=== PATIENT | male | born 1940 | race African-American/Black ===

== ENCOUNTER 2018-05-17 17:58 | Inpatient (IN) | payer MEDICARE, MEDICAID, OTHER ==
[~2018-05-17] VITALS: Ht 182.9 cm; Wt 108.4 kg
[~2018-05-17 17:58] MED LIST: ACET650S25 PO; AP25 PO; ASPI-1158 PO; BENA20TA10 PO; BENA40TA9 PO; CLON0.1T PO; CLOP75TA16 PO; DIAZ2TAB3 PO; DICL100G16 TP; DICL25TA8 PO; FURO20TA4 PO; GLIP5TAB12 PO; IBUP-2030 PO; METO1TAB24 PO; OXYB5TAB11 PO; PREG75CA PO; SIMV40TA5 PO; SIMV5TAB53 PO; ZOLP5TAB2 PO
[2018-05-17 18:57] LABS: BASOPHILS % 0.1 % (0.0-2.0); EOSINOPHILS % 1.1 % (0.0-5.0); HEMATOCRIT. 46.7 % (42.0-52.0); HEMOGLOBIN. 14.7 g/dL (14.0-18.0); LYMPHOCYTES % 20.3 % (20.0-50.0); MEAN CORPUSCULAR HEMOGLOBIN 25.8 pg (28.0-32.0); MEAN CORPUSCULAR VOLUME 82.3 fL (80.0-94.0); MEAN PLATELET VOLUME 7.9 fl (7.4-10.4); NEUTROPHILS % 67.5 % (40.0-76.0); PLATELET 159 x1000/uL (130-400); RED BLOOD CELL COUNT 5.68 mill/uL (4.7-6.1); RED CELL DISTRIBUTION WIDTH 16.3 % (11.6-14.6)
[2018-05-17 18:58] LABS: CHLORIDE 106 mEq/L (98-107)
[2018-05-17 19:03] LABS: ETHANOL BLOOD < 10 mg/dL
[2018-05-17 20:07] LABS: CLARITY URINE CLEAR (CLEAR); COLOR URINE YELLOW (YELLOW); KETONES URINE 1+ (NEGATIVE); LEUKOCYTE ESTERASE URINE NEGATIVE (NEGATIVE); NITRITE URINE NEGATIVE (NEGATIVE); OCCULT BLOOD URINE NEGATIVE (NEGATIVE); PH URINE 6.5 (4.5-8.0); PROTEIN URINE NEGATIVE (NEGATIVE); SPECIFIC GRAVITY URINE 1.021 (1.005-1.030); UROBILINOGEN URINE 0.2 E.U./dL (0.2-1.0)
[2018-05-17 20:19] LABS: *AMPHETAMINES SCREEN URINE NEGATIVE (NEGATIVE)
[2018-05-17 20:20] LABS: *BARBITURATES SCREEN URINE NEGATIVE (NEGATIVE); *BENZODIAZEPINES SCREEN URINE NEGATIVE (NEGATIVE); *COCAINE SCREEN URINE NEGATIVE (NEGATIVE); CANNABINOID URINE SCREEN NEGATIVE (NEGATIVE); METHADONE URINE SCREEN NEGATIVE (NEGATIVE); OPIATES URINE SCREEN PRESUMTIVE POSITIVE (NEGATIVE); PHENCYCLIDINE URINE SCREEN NEGATIVE (NEGATIVE)
[2018-05-17] MEDS ORDERED: HYDRALAZINE 20MG/ML VIAL IV ONE (20:30)
[2018-05-17] MEDS ORDERED: NALOXONE HCL 0.4 MG/ML 1ML VIAL IV ONE (20:30)
[2018-05-17 20:46] LABS: BG BASE EXCESS 0.2 mmol/L (-2.0-2.0); BG CARBOXYHEMOGLOBIN 1.1 % (0.5-1.5); BG DEOXYHEMOGLOBIN 1.7 % (0.0-5.0); BG FRACTION INSPIRED OXYGEN 28; BG HCO3 ACT 24.6 mmol/L (22.0-26.0); BG METHEMOGLOBIN 0.2 % (0.0-1.5); BG OXYGEN SATURATION 98.3 % (92.0-98.5); BG PCO2 39.1 mmHg (35.0-45.0); BG PH 7.417 (7.350-7.450); BG PO2 112.6 mmHg (75.0-100.0); BG SAMPLE SITE RIGHT RADIAL; BG TOTAL HEMOGLOBIN 14.7 g/dL (12.0-18.0); BG VENT MODE NASAL CANNULA
[2018-05-17 23:30] VITALS: BP 164/92
[2018-05-18] MEDS ORDERED: QUET25TA PO (00:56)
[2018-05-18] MEDS ORDERED: DEXT 5%/0.45% NACL 500ML 1,000 ML IV SCH (02:00)
[2018-05-18 04:00] VITALS: BP 129/80
[2018-05-18 08:04] VITALS: BP 150/91
[2018-05-18 08:33] LABS: BG BASE EXCESS -0.1 mmol/L (-2.0-2.0); BG CARBOXYHEMOGLOBIN 0.9 % (0.5-1.5); BG DEOXYHEMOGLOBIN 1.8 % (0.0-5.0); BG FRACTION INSPIRED OXYGEN 32; BG HCO3 ACT 26.7 mmol/L (22.0-26.0); BG OXYGEN SATURATION 98.2 % (92.0-98.5); BG OXYHEMOGLOBIN 97.3 % (94.0-97.0); BG PCO2 52.1 mmHg (35.0-45.0); BG PH 7.327 (7.350-7.450); BG PO2 111.4 mmHg (75.0-100.0); BG SAMPLE SITE RIGHT RADIAL; BG TOTAL HEMOGLOBIN 14.1 g/dL (12.0-18.0); BG VENT MODE NASAL CANNULA
[2018-05-18] MEDS: ENOXAPARIN 30MG/0.3ML SYR SUBCUT SCH ×2 (08:48→20:52)
[2018-05-18] MEDS: PANTOPRAZOLE SODIUM 40 MG/VIAL IV SCH (08:48)
[2018-05-18] MEDS ORDERED: ENOXAPARIN 40MG/0.4ML SYR SUBCUT SCH (09:00)
[2018-05-18 11:41] VITALS: BP 141/77
[2018-05-18 12:45] LABS: HEMOGLOBIN 13.2 g/dL (14.0-18.0); MEAN CORPUSCULAR HEMOGLOBIN 25.7 pg (28.0-32.0); MEAN CORPUSCULAR VOLUME 82.1 fL (80.0-94.0); PLATELET 153 x1000/uL (130-400); RED BLOOD CELL COUNT 5.11 mill/uL (4.7-6.1); RED CELL DISTRIBUTION WIDTH 15.9 % (11.6-14.6)
[2018-05-18 12:52] LABS: CHLORIDE 110 mEq/L (98-107)
[2018-05-18] MEDS ORDERED: DEXTROSE 50% WATER 50ML SYRINGE IV PRN (15:00)
[2018-05-18] MEDS ORDERED: ACETAMINOPHEN 650MG SUPP PR PRN (15:00)
[2018-05-18] MEDS ORDERED: DIPHENHYDRAMINE 50MG/ML VIAL IV PRN (15:00)
[2018-05-18] MEDS ORDERED: ACETAMINOPHEN 325MG TABLET PO PRN (15:00)
[2018-05-18 15:55] LABS: BG CARBOXYHEMOGLOBIN 0.8 % (0.5-1.5); BG DEOXYHEMOGLOBIN 6.4 % (0.0-5.0); BG FRACTION INSPIRED OXYGEN 21; BG HCO3 ACT 25.3 mmol/L (22.0-26.0); BG METHEMOGLOBIN 0.4 % (0.0-1.5); BG OXYGEN SATURATION 93.5 % (92.0-98.5); BG OXYHEMOGLOBIN 92.4 % (94.0-97.0); BG PCO2 39.2 mmHg (35.0-45.0); BG PH 7.427 (7.350-7.450); BG PO2 65.5 mmHg (75.0-100.0); BG SAMPLE SITE RIGHT RADIAL; BG TOTAL HEMOGLOBIN 14.2 g/dL (12.0-18.0); BG VENT MODE ROOM AIR
[2018-05-18 16:00] VITALS: BP 171/89
[2018-05-18 16:24] LABS: CREATINE KINASE MB FRACTION 2.2 ng/mL (0.5-3.6)
[2018-05-18] MEDS: LEVOFLOXACIN 500MG PREMIX 100 ML IV SCH (16:28)
[2018-05-18] MEDS: HYDRALAZINE 20MG/ML VIAL IV PRN (16:29)
[2018-05-18] MEDS ORDERED: P20 MT (17:13)
[2018-05-18] MEDS ORDERED: LOSA100T14 PO (17:13)
[2018-05-18] MEDS ORDERED: DOCU100T PO (17:13)
[2018-05-18] MEDS ORDERED: LEVA1.2515 IH (17:13)
[2018-05-18] MEDS ORDERED: SILV50CR31 TP (17:13)
[2018-05-18] MEDS ORDERED: MULT-1203 PO (17:13)
[2018-05-18] MEDS ORDERED: CHOL200010 MT (17:13)
[2018-05-18] MEDS ORDERED: SPIR25TA6 PO (17:13)
[2018-05-18] MEDS ORDERED: SILV480G2 TP (17:13)
[2018-05-18] MEDS ORDERED: METO-411 PO (17:13)
[2018-05-18] MEDS ORDERED: SILD20TA PO (17:13)
[2018-05-18] MEDS ORDERED: TC025C15 TP (17:13)
[2018-05-18] MEDS ORDERED: ALBU90AE INH (17:13)
[2018-05-18] MEDS ORDERED: FLUT15.88 BOTHNSTRLS (17:13)
[2018-05-18] MEDS ORDERED: BENA20TA10 PO (17:13)
[2018-05-18] MEDS ORDERED: FLUT1DIS3 INH (17:13)
[2018-05-18] MEDS ORDERED: NALO4SPR BOTHNSTRLS (17:13)
[2018-05-18] MEDS ORDERED: DOXY100T28 PO (17:13)
[2018-05-18] MEDS ORDERED: PREG100C PO (17:13)
[2018-05-18] MEDS: BLOOD SUGAR DIAGNOSTIC STRIP TEST SCH ×2 (17:46→20:51)
[2018-05-18] MEDS: INSULIN LISPRO 100 UNITS/ML SUBCUT SCH ×2 (17:46→20:51)
[2018-05-18 17:50] VITALS: BP 158/83
[2018-05-18 20:00] VITALS: BP 153/83
[2018-05-18] MEDS: DILTIAZEM HCL 30MG TABLET PO SCH (21:19)
[2018-05-19] VITALS (9 sets, daily range): BP systolic 143–181; BP diastolic 73–102
[2018-05-19] MEDS: HYDRALAZINE 20MG/ML VIAL IV PRN ×4 (00:37→20:24)
[2018-05-19] MEDS: DILTIAZEM HCL 30MG TABLET PO SCH (05:16)
[2018-05-19] MEDS: BLOOD SUGAR DIAGNOSTIC STRIP TEST SCH ×4 (06:54→20:32)
[2018-05-19] MEDS: INSULIN LISPRO 100 UNITS/ML SUBCUT SCH ×4 (06:54→20:31)
[2018-05-19 07:00] LABS: INR 1.1
[2018-05-19 07:03] LABS: HEMATOCRIT 45.1 % (42.0-52.0); HEMOGLOBIN 14.4 g/dL (14.0-18.0); MEAN CORPUSCULAR VOLUME 81.4 fL (80.0-94.0); PLATELET 160 x1000/uL (130-400); RED BLOOD CELL COUNT 5.54 mill/uL (4.7-6.1); RED CELL DISTRIBUTION WIDTH 16.3 % (11.6-14.6)
[2018-05-19 07:08] LABS: CHLORIDE 106 mEq/L (98-107)
[2018-05-19 07:28] LABS: LDL CHOLESTEROL 93 mg/dL (5-100)
[2018-05-19 07:30] LABS: HDL CHOLESTEROL 66 mg/dL (40-59); T4 FREE 1.26 ng/dL (0.76-1.46)
[2018-05-19] MEDS ORDERED: CLONIDINE 0.1MG TABLET PO PRN (08:45)
[2018-05-19] MEDS: PANTOPRAZOLE SODIUM 40 MG/VIAL IV SCH (09:06)
[2018-05-19] MEDS: ENOXAPARIN 30MG/0.3ML SYR SUBCUT SCH ×2 (09:06→20:25)
[2018-05-19] MEDS ORDERED: IPRATROPIUM/ALBUTEROL 0.5-3(2.5)MG/3ML NEB HHN PRN (11:30)
[2018-05-19] MEDS ORDERED: DILTIAZEM HCL 60MG TABLET PO SCH (14:00)
[2018-05-19] MEDS ORDERED: METOPROLOL TARTRATE 50MG TABLET PO ONE (16:45)
[2018-05-19] MEDS: LEVOFLOXACIN 500MG PREMIX 100 ML IV SCH (16:56)
== END 2018-05-19 20:45 | disposition home or self-care (01) | DRG 917 ==
LOC: ER 17:58 → 8WST 21:30 → ENRESERV 22:19
PROVIDERS: ADMIT Internal Medicine; ATTEND Internal Medicine
DX: T43.592A Poisoning by other antipsychotics and neuroleptics, intentional self-harm, initial encounter (principal); G92 Toxic encephalopathy; I50.33 Acute on chronic diastolic (congestive) heart failure; E87.2 Acidosis; J98.11 Atelectasis; T40.601A Poisoning by unspecified narcotics, accidental (unintentional), initial encounter; F03.90 Unspecified dementia, unspecified severity, without behavioral disturbance, psychotic disturbance, mood disturbance, and anxiety; E86.0 Dehydration; R00.0 Tachycardia, unspecified; J01.90 Acute sinusitis, unspecified; E11.8 Type 2 diabetes mellitus with unspecified complications; M48.061 Spinal stenosis, lumbar region without neurogenic claudication; E11.65 Type 2 diabetes mellitus with hyperglycemia; I11.0 Hypertensive heart disease with heart failure; Z79.82 Long term (current) use of aspirin; Z79.1 Long term (current) use of non-steroidal anti-inflammatories (NSAID); Z79.899 Other long term (current) drug therapy; Y92.89 Other specified places as the place of occurrence of the external cause
CPT/HCPCS: 36415; 36600; 71045; 80048; 80061; 80305; 80307; 80329; 82140; 82375; 82550; 82553; 82805; 82962; 83036; 83605; 84439; 84443; 84484; 85027; 92610; 93005; 93306; 93970; 96374; 96375; 97162; 99285; C9113; J0360; J1650; J1815; J1956; J2310

== ENCOUNTER 2018-07-26 22:00 | Inpatient (IN) | payer MEDICARE, OTHER ==
[~2018-07-26] VITALS: Ht 182.9 cm; Wt 107.0 kg
[~2018-07-26 22:00] MED LIST changes: +ALBU90AE INH; -BENA40TA9 PO; +CHOL200010 MT; -CLOP75TA16 PO; -DIAZ2TAB3 PO; -DICL100G16 TP; -DICL25TA8 PO; +DOCU100T PO; +DOXY100T28 PO; +FLUT1DIS3 INH; +LEVA1.2515 IH; +LOSA100T14 PO; +METO-411 PO; -METO1TAB24 PO; +MULT-1203 PO; +NALO4SPR BOTHNSTRLS; -OXYB5TAB11 PO; +PREG100C PO; -PREG75CA PO; +SILD20TA PO; +SILV480G2 TP; +SILV50CR31 TP; -SIMV5TAB53 PO; +SPIR25TA6 PO; +TC025C15 TP; -ZOLP5TAB2 PO
[2018-07-26] MEDS ORDERED: ALBUTEROL (0.083%) 2.5MG/3ML NEB HHN STA (22:09)
[2018-07-26] MEDS ORDERED: METHYLPREDNISOLONE SOD SUCC 125 MG/2 ML VIAL IV STA (22:09)
[2018-07-26] MEDS ORDERED: NITROGLYCERIN OINT 1GM/INCH UDPKT TD ONE (22:15)
[2018-07-26] MEDS ORDERED: FUROSEMIDE 20MG/2ML VIAL IVP ONE (22:15)
[2018-07-26 22:30] LABS: BASOPHILS % 0.6 % (0.0-2.0); EOSINOPHILS % 3.4 % (0.0-5.0); MEAN CORPUSCULAR VOLUME 81.9 fL (80.0-94.0); MEAN PLATELET VOLUME 8.3 fl (7.4-10.4); MONOCYTES % 6.9 % (2.0-8.0); NEUTROPHILS % 61.1 % (40.0-76.0); PLATELET 184 x1000/uL (130-400); RED BLOOD CELL COUNT 5.37 mill/uL (4.7-6.1); RED CELL DISTRIBUTION WIDTH 17.5 % (11.6-14.6)
[2018-07-26 22:34] LABS: CHLORIDE 109 mEq/L (98-107)
[2018-07-26 22:38] LABS: PROTHROMBIN TIME 10.3 sec (9.6-11.0)
[2018-07-26] MEDS ORDERED: ASPIRIN 81MG TABLET PO ONE (23:00)
[2018-07-27] VITALS (9 sets, daily range): BP systolic 100–156; BP diastolic 49–98
[2018-07-27 00:17] LABS: BG BASE EXCESS 0.9 mmol/L (-2.0-2.0); BG BILEVEL POS AIRWAY PRESSURE 15/5; BG CARBOXYHEMOGLOBIN 0.6 % (0.5-1.5); BG DEOXYHEMOGLOBIN 3.3 % (0.0-5.0); BG FRACTION INSPIRED OXYGEN 40; BG HCO3 ACT 30.3 mmol/L (22.0-26.0); BG METHEMOGLOBIN 0.3 % (0.0-1.5); BG OXYGEN SATURATION 96.7 % (92.0-98.5); BG OXYHEMOGLOBIN 95.8 % (94.0-97.0); BG PCO2 71.4 mmHg (35.0-45.0); BG PH 7.246 (7.350-7.450); BG PO2 97.5 mmHg (75.0-100.0); BG SAMPLE SITE RIGHT RADIAL; BG TOTAL HEMOGLOBIN 14.4 g/dL (12.0-18.0); BG VENT MODE MASK - BIPAP; BG VENT RATE 16 set
[2018-07-27 01:50] LABS: BG BASE EXCESS 0.1 mmol/L (-2.0-2.0); BG BILEVEL POS AIRWAY PRESSURE 15/5; BG CARBOXYHEMOGLOBIN 0.9 % (0.5-1.5); BG FRACTION INSPIRED OXYGEN 40; BG HCO3 ACT 28.9 mmol/L (22.0-26.0); BG METHEMOGLOBIN 0.3 % (0.0-1.5); BG OXYHEMOGLOBIN 94.8 % (94.0-97.0); BG PCO2 65.9 mmHg (35.0-45.0); BG PO2 88.4 mmHg (75.0-100.0); BG SAMPLE SITE RIGHT RADIAL; BG TOTAL HEMOGLOBIN 14.3 g/dL (12.0-18.0); BG VENT MODE MASK - BIPAP; BG VENT RATE 16 set
[2018-07-27] MEDS ORDERED: GLIP2.5T3 PO (06:27)
[2018-07-27] MEDS ORDERED: LOSA100T14 PO (06:27)
[2018-07-27] MEDS ORDERED: METO-411 PO (06:27)
[2018-07-27] MEDS ORDERED: OXYB5TAB11 PO (06:27)
[2018-07-27] MEDS ORDERED: CLON0.3T PO (06:27)
[2018-07-27] MEDS ORDERED: HYDR-4135 PO (06:27)
[2018-07-27] MEDS ORDERED: CLONIDINE 0.2MG TABLET PO PRN (07:00)
[2018-07-27] MEDS: PANTOPRAZOLE SODIUM 40 MG/VIAL IV SCH (07:33)
[2018-07-27] MEDS: METHYLPREDNISOLONE SOD SUCC 40 MG/ML VIAL IV SCH ×3 (07:33→21:12)
[2018-07-27] MEDS: GLIPIZIDE 5MG XL TABLET PO SCH (08:45)
[2018-07-27 08:46] LABS: BG BASE EXCESS -5.2 mmol/L (-2.0-2.0); BG BILEVEL POS AIRWAY PRESSURE 15/5; BG CARBOXYHEMOGLOBIN 0.7 % (0.5-1.5); BG DEOXYHEMOGLOBIN 3.3 % (0.0-5.0); BG HCO3 ACT 22.4 mmol/L (22.0-26.0); BG METHEMOGLOBIN 0.3 % (0.0-1.5); BG OXYGEN SATURATION 96.7 % (92.0-98.5); BG OXYHEMOGLOBIN 95.7 % (94.0-97.0); BG PCO2 51.6 mmHg (35.0-45.0); BG PH 7.255 (7.350-7.450); BG PO2 99.7 mmHg (75.0-100.0); BG SAMPLE SITE RIGHT RADIAL; BG VENT MODE MASK - BIPAP; BG VENT RATE 18 set
[2018-07-27] MEDS: OXYBUTYNIN CHLORIDE 5MG TABLET PO SCH ×3 (08:46→17:43)
[2018-07-27] MEDS: ENOXAPARIN 30MG/0.3ML SYR SUBCUT SCH ×2 (08:47→21:13)
[2018-07-27] MEDS ORDERED: CLONIDINE 0.3MG TABLET PO SCH (09:00)
[2018-07-27] MEDS ORDERED: HYDRALAZINE HCL PO SCH (09:00)
[2018-07-27] MEDS ORDERED: HYDRALAZINE HCL 100MG TABLET PO SCH (09:00)
[2018-07-27] MEDS ORDERED: LOSARTAN POTASSIUM 100 MG TABLET PO SCH (09:00)
[2018-07-27] MEDS ORDERED: GLIPIZIDE XL 2.5MG TABLET PO SCH (09:00)
[2018-07-27] MEDS ORDERED: MEDICATION NOT ON FORMULARY EA (Metoprolol Succinate 100 MG) PO SCH (09:00)
[2018-07-27] MEDS ORDERED: MEDICATION NOT ON FORMULARY EA (Losartan Potassium 100 MG) PO SCH (09:00)
[2018-07-27] MEDS ORDERED: METOPROLOL TARTRATE 50MG TABLET PO SCH ×2 (09:00→21:00)
[2018-07-27] MEDS ORDERED: CLONIDINE HCL 0.3 MG PO SCH (09:00)
[2018-07-27] MEDS ORDERED: OXYBUTYNIN CHLORIDE 5 MG PO SCH (09:00)
[2018-07-27] MEDS: IPRATROPIUM/ALBUTEROL 0.5-3(2.5)MG/3ML NEB HHN SCH ×4 (09:48→20:25)
[2018-07-27] MEDS: FUROSEMIDE 40MG/4ML VIAL IVP SCH ×2 (15:38→21:12)
[2018-07-27] MEDS: LEVOFLOXACIN 750MG PREMIX 150 ML IV SCH (17:43)
[2018-07-27 18:48] LABS: CREATINE KINASE MB FRACTION 3.1 ng/mL (0.5-3.6)
[2018-07-27] MEDS: CLONIDINE 0.3MG TABLET PO SCH (21:00)
[2018-07-27] MEDS: HYDRALAZINE HCL 100MG TABLET PO SCH (21:13)
[2018-07-28] VITALS (12 sets, daily range): BP systolic 104–158; BP diastolic 55–98
[2018-07-28 00:04] LABS: CANNABINOID URINE SCREEN NEGATIVE (NEGATIVE); OPIATES URINE SCREEN PRESUMTIVE POSITIVE (NEGATIVE); PHENCYCLIDINE URINE SCREEN NEGATIVE (NEGATIVE)
[2018-07-28 00:05] LABS: *AMPHETAMINES SCREEN URINE NEGATIVE (NEGATIVE); *BARBITURATES SCREEN URINE NEGATIVE (NEGATIVE); *BENZODIAZEPINES SCREEN URINE NEGATIVE (NEGATIVE); *COCAINE SCREEN URINE NEGATIVE (NEGATIVE); METHADONE URINE SCREEN NEGATIVE (NEGATIVE)
[2018-07-28] MEDS: IPRATROPIUM/ALBUTEROL 0.5-3(2.5)MG/3ML NEB HHN SCH ×6 (00:24→20:41)
[2018-07-28] MEDS: METHYLPREDNISOLONE SOD SUCC 40 MG/ML VIAL IV SCH ×3 (06:21→20:58)
[2018-07-28] MEDS: GLIPIZIDE 5MG XL TABLET PO SCH (06:21)
[2018-07-28 07:17] LABS: BASOPHILS % 0.1 % (0.0-2.0); HEMATOCRIT. 38.7 % (42.0-52.0); HEMOGLOBIN. 12.2 g/dL (14.0-18.0); LYMPHOCYTES % 11.1 % (20.0-50.0); MEAN CORPUSCULAR HEMOGLOBIN 25.6 pg (28.0-32.0); MEAN CORPUSCULAR VOLUME 80.8 fL (80.0-94.0); MEAN PLATELET VOLUME 8.2 fl (7.4-10.4); MONOCYTES % 5.3 % (2.0-8.0); NEUTROPHILS % 83.5 % (40.0-76.0); PLATELET 161 x1000/uL (130-400); RED BLOOD CELL COUNT 4.79 mill/uL (4.7-6.1); RED CELL DISTRIBUTION WIDTH 17.2 % (11.6-14.6)
[2018-07-28] MEDS: LOSARTAN POTASSIUM 100 MG TABLET PO SCH (08:20)
[2018-07-28] MEDS: ENOXAPARIN 30MG/0.3ML SYR SUBCUT SCH ×2 (08:20→20:58)
[2018-07-28] MEDS: OXYBUTYNIN CHLORIDE 5MG TABLET PO SCH ×3 (08:20→16:34)
[2018-07-28] MEDS: HYDRALAZINE HCL 100MG TABLET PO SCH ×2 (08:21→20:58)
[2018-07-28] MEDS: CLONIDINE 0.3MG TABLET PO SCH ×2 (08:21→20:46)
[2018-07-28] MEDS: PANTOPRAZOLE SODIUM 40 MG/VIAL IV SCH (08:21)
[2018-07-28] MEDS: FUROSEMIDE 40MG/4ML VIAL IVP SCH (08:22)
[2018-07-28] MEDS: ASPIRIN 81MG EC TABLET PO SCH (08:32)
[2018-07-28] MEDS: LEVOFLOXACIN 750MG PREMIX 150 ML IV SCH (16:35)
[2018-07-29] VITALS (11 sets, daily range): BP systolic 99–177; BP diastolic 55–92
[2018-07-29] MEDS: IPRATROPIUM/ALBUTEROL 0.5-3(2.5)MG/3ML NEB HHN SCH ×5 (00:08→15:53)
[2018-07-29] MEDS: GLIPIZIDE 5MG XL TABLET PO SCH (05:45)
[2018-07-29] MEDS: METHYLPREDNISOLONE SOD SUCC 40 MG/ML VIAL IV SCH ×2 (05:45→15:14)
[2018-07-29 07:00] LABS: BASOPHILS % 0.2 % (0.0-2.0); HEMATOCRIT. 42.1 % (42.0-52.0); HEMOGLOBIN. 13.7 g/dL (14.0-18.0); LYMPHOCYTES % 10.8 % (20.0-50.0); MEAN CORPUSCULAR VOLUME 80.1 fL (80.0-94.0); MEAN PLATELET VOLUME 8.1 fl (7.4-10.4); MONOCYTES % 5.1 % (2.0-8.0); NEUTROPHILS % 83.9 % (40.0-76.0); PLATELET 171 x1000/uL (130-400); RED BLOOD CELL COUNT 5.26 mill/uL (4.7-6.1); RED CELL DISTRIBUTION WIDTH 17.2 % (11.6-14.6)
[2018-07-29 07:07] LABS: BG CARBOXYHEMOGLOBIN 0.5 % (0.5-1.5); BG DEOXYHEMOGLOBIN 6.9 % (0.0-5.0); BG HCO3 ACT 27.2 mmol/L (22.0-26.0); BG METHEMOGLOBIN 0.2 % (0.0-1.5); BG OXYGEN SATURATION 93.1 % (92.0-98.5); BG OXYHEMOGLOBIN 92.4 % (94.0-97.0); BG PCO2 40.4 mmHg (35.0-45.0); BG PH 7.446 (7.350-7.450); BG PO2 64.7 mmHg (75.0-100.0); BG SAMPLE SITE RIGHT BRACHIAL; BG TOTAL HEMOGLOBIN 13.8 g/dL (12.0-18.0); BG VENT MODE ROOM AIR
[2018-07-29 07:55] LABS: CHLORIDE 106 mEq/L (98-107)
[2018-07-29] MEDS: OXYBUTYNIN CHLORIDE 5MG TABLET PO SCH ×3 (09:17→18:16)
[2018-07-29] MEDS: ASPIRIN 81MG EC TABLET PO SCH (09:17)
[2018-07-29] MEDS: LOSARTAN POTASSIUM 100 MG TABLET PO SCH (09:18)
[2018-07-29] MEDS: HYDRALAZINE HCL 100MG TABLET PO SCH ×3 (09:18→18:16)
[2018-07-29] MEDS: PANTOPRAZOLE SODIUM 40 MG/VIAL IV SCH (09:19)
[2018-07-29] MEDS: FUROSEMIDE 40MG/4ML VIAL IVP SCH (09:19)
[2018-07-29] MEDS: ENOXAPARIN 30MG/0.3ML SYR SUBCUT SCH (09:46)
[2018-07-29] MEDS: CLONIDINE 0.3MG TABLET PO SCH (10:45)
[2018-07-29] MEDS ORDERED: LEVOFLOXACIN 250MG TABLET PO SCH (17:00)
[2018-07-30] MEDS ORDERED: FAMOTIDINE 20MG TABLET PO SCH (09:00)
== END 2018-07-29 20:42 | disposition home or self-care (01) | DRG 291 ==
LOC: ER 22:00 → 3WST 23:26 → EDBEDREQSVC 23:31 → EDBEDREQ 23:31 → EDBEDREQTM 23:31 → ENRESERV 07-27 04:41 → 3WST 07-27 05:20
PROVIDERS: ADMIT Internal Medicine; ATTEND Internal Medicine
PROC: 5A09357 Assistance with Respiratory Ventilation, Less than 24 Consecutive Hours, Continuous Positive Airway Pressure (ICD-10-PCS; principal; 2018-07-26)
PROC: 5A09357 Assistance with Respiratory Ventilation, Less than 24 Consecutive Hours, Continuous Positive Airway Pressure (ICD-10-PCS; 2018-07-27)
DX: I11.0 Hypertensive heart disease with heart failure (principal); J96.22 Acute and chronic respiratory failure with hypercapnia; J44.1 Chronic obstructive pulmonary disease with (acute) exacerbation; I50.33 Acute on chronic diastolic (congestive) heart failure; E11.9 Type 2 diabetes mellitus without complications; R74.8 Abnormal levels of other serum enzymes; R94.31 Abnormal electrocardiogram [ECG] [EKG]; E83.51 Hypocalcemia; E78.00 Pure hypercholesterolemia, unspecified; E78.5 Hyperlipidemia, unspecified; Z95.0 Presence of cardiac pacemaker; Z79.82 Long term (current) use of aspirin; Z79.899 Other long term (current) drug therapy; Z79.84 Long term (current) use of oral hypoglycemic drugs; Z79.4 Long term (current) use of insulin
CPT/HCPCS: 36415; 36600; 71045; 80048; 80061; 80305; 82375; 82550; 82553; 82805; 83605; 83735; 83880; 84443; 84484; 85379; 93005; 93306; 94640; 96374; 96375; 99291; C9113; J1650; J1940; J1956; J2920; J2930; J7040; J7050; J7611; J7620

== ENCOUNTER 2018-08-01 09:11 | Inpatient (IN) | payer MEDICARE, OTHER ==
[~2018-08-01] VITALS: Ht 182.9 cm; Wt 109.8 kg
[~2018-08-01 09:11] MED LIST changes: -ACET650S25 PO; -ALBU90AE INH; -AP25 PO; -ASPI-1158 PO; -BENA20TA10 PO; -CHOL200010 MT; -CLON0.1T PO; -DOCU100T PO; -DOXY100T28 PO; -FLUT1DIS3 INH; -FURO20TA4 PO; -GLIP5TAB12 PO; -IBUP-2030 PO; -LEVA1.2515 IH; -METO-411 PO; -MULT-1203 PO; -NALO4SPR BOTHNSTRLS; +OXYB5TAB11 PO; -PREG100C PO; -SILD20TA PO; -SILV480G2 TP; -SILV50CR31 TP; -SIMV40TA5 PO; -SPIR25TA6 PO; -TC025C15 TP
[2018-08-01] MEDS ORDERED: IPRATROPIUM BROMIDE (0.02%) 0.5MG/2.5ML NEB HHN STA (09:46)
[2018-08-01] MEDS ORDERED: ALBUTEROL (0.083%) 2.5MG/3ML NEB HHN STA (09:46)
[2018-08-01] MEDS ORDERED: SODIUM CHLORIDE 0.9% 1,000 ML IV ONE (09:46)
[2018-08-01] MEDS ORDERED: METHYLPREDNISOLONE SOD SUCC 125 MG/2 ML VIAL IV STA (09:46)
[2018-08-01 10:20] LABS: BASOPHILS % 0.2 % (0.0-2.0); EOSINOPHILS % 3.4 % (0.0-5.0); HEMATOCRIT. 39.1 % (42.0-52.0); HEMOGLOBIN. 12.5 g/dL (14.0-18.0); LYMPHOCYTES % 38.6 % (20.0-50.0); MEAN CORPUSCULAR HEMOGLOBIN 25.9 pg (28.0-32.0); MEAN PLATELET VOLUME 7.9 fl (7.4-10.4); MONOCYTES % 11.7 % (2.0-8.0); NEUTROPHILS % 46.1 % (40.0-76.0); PLATELET 155 x1000/uL (130-400); RED BLOOD CELL COUNT 4.82 mill/uL (4.7-6.1); RED CELL DISTRIBUTION WIDTH 17.3 % (11.6-14.6)
[2018-08-01 10:25] LABS: CHLORIDE 107 mEq/L (98-107); PROTHROMBIN TIME 10.7 sec (9.6-11.0)
[2018-08-01] MEDS ORDERED: ASPIRIN 325MG TABLET PO NR (11:15)
[2018-08-01] MEDS ORDERED: PIPERACILLIN/TAZ 3.375G PREMIX 50 ML IV ONE (11:30)
[2018-08-01 16:00] VITALS: BP 110/66
[2018-08-01] MEDS ORDERED: CLONIDINE 0.1MG TABLET PO PRN (16:00)
[2018-08-01] MEDS ORDERED: ACETAMINOPHEN 325MG TABLET PO PRN (16:00)
[2018-08-01] MEDS ORDERED: HYDROCODONE/ACETAMINOPHEN 5/325MG TABLET PO PRN (16:00)
[2018-08-01] MEDS ORDERED: IPRATROPIUM/ALBUTEROL 0.5-3(2.5)MG/3ML NEB INH PRN (16:00)
[2018-08-01] MEDS ORDERED: ONDANSETRON HCL 4MG/2ML INJ IV PRN (16:00)
[2018-08-01 17:29] VITALS: BP 123/77
[2018-08-01 18:00] VITALS: BP 121/74
[2018-08-01] MEDS: METHYLPREDNISOLONE SOD SUCC 40 MG/ML VIAL IV SCH (19:36)
[2018-08-01 20:00] VITALS: BP 132/77
[2018-08-01] MEDS: ENOXAPARIN 30MG/0.3ML SYR SUBCUT SCH (21:08)
[2018-08-01 22:00] VITALS: BP 121/76
[2018-08-02] VITALS (11 sets, daily range): BP systolic 121–152; BP diastolic 49–89
[2018-08-02 07:32] LABS: BASOPHILS % 0.1 % (0.0-2.0); EOSINOPHILS % 0.1 % (0.0-5.0); HEMATOCRIT. 40.9 % (42.0-52.0); HEMOGLOBIN. 13.1 g/dL (14.0-18.0); LYMPHOCYTES % 12.8 % (20.0-50.0); MEAN CORPUSCULAR HEMOGLOBIN 26.2 pg (28.0-32.0); MEAN CORPUSCULAR VOLUME 81.8 fL (80.0-94.0); MEAN PLATELET VOLUME 8.1 fl (7.4-10.4); MONOCYTES % 6.2 % (2.0-8.0); NEUTROPHILS % 80.8 % (40.0-76.0); PLATELET 166 x1000/uL (130-400)
[2018-08-02 07:52] LABS: CHLORIDE 108 mEq/L (98-107)
[2018-08-02 08:15] LABS: LDL CHOLESTEROL 98 mg/dL (5-100)
[2018-08-02 08:17] LABS: CREATINE KINASE 58 IU/L (39-308)
[2018-08-02 08:21] LABS: HDL CHOLESTEROL 58 mg/dL (40-59)
[2018-08-02] MEDS: METHYLPREDNISOLONE SOD SUCC 40 MG/ML VIAL IV SCH ×2 (09:06→18:01)
[2018-08-02] MEDS: ENOXAPARIN 30MG/0.3ML SYR SUBCUT SCH ×2 (09:07→21:23)
[2018-08-02] MEDS ORDERED: DEXTROSE 50% WATER 50ML SYRINGE IV PRN (17:30)
[2018-08-02] MEDS: INSULIN LISPRO 100 UNITS/ML SUBCUT SCH ×2 (18:00→21:29)
[2018-08-02] MEDS: BLOOD SUGAR DIAGNOSTIC STRIP TEST SCH ×2 (18:01→21:30)
[2018-08-02] MEDS: AMLODIPINE 5MG TABLET PO SCH (18:07)
[2018-08-02 18:29] LABS: T4 FREE 1.21 ng/dL (0.76-1.46)
[2018-08-03] VITALS: BP 169/101
[2018-08-03] MEDS: IPRATROPIUM/ALBUTEROL 0.5-3(2.5)MG/3ML NEB HHN SCH ×5 (00:44→15:33)
[2018-08-03 04:00] VITALS: BP 154/77
[2018-08-03 06:33] LABS: CHLORIDE 106 mEq/L (98-107)
[2018-08-03 06:43] LABS: HEMATOCRIT 36.4 % (42.0-52.0); HEMOGLOBIN 11.8 g/dL (14.0-18.0); MEAN CORPUSCULAR HEMOGLOBIN 26.1 pg (28.0-32.0); MEAN CORPUSCULAR VOLUME 80.6 fL (80.0-94.0); PLATELET 147 x1000/uL (130-400); RED BLOOD CELL COUNT 4.52 mill/uL (4.7-6.1); RED CELL DISTRIBUTION WIDTH 17.7 % (11.6-14.6)
[2018-08-03] MEDS: BLOOD SUGAR DIAGNOSTIC STRIP TEST SCH ×2 (06:50→12:29)
[2018-08-03 08:00] VITALS: BP 138/97
[2018-08-03] MEDS: INSULIN LISPRO 100 UNITS/ML SUBCUT SCH ×2 (08:31→12:29)
[2018-08-03] MEDS: ENOXAPARIN 30MG/0.3ML SYR SUBCUT SCH (08:33)
[2018-08-03] MEDS: METHYLPREDNISOLONE SOD SUCC 40 MG/ML VIAL IV SCH ×2 (08:33→17:00)
[2018-08-03] MEDS: AMLODIPINE 5MG TABLET PO SCH (08:34)
[2018-08-03 12:00] VITALS: BP 146/95
[2018-08-03 16:00] VITALS: BP 151/68
[2018-08-03 17:11] VITALS: BP 151/68
== END 2018-08-03 17:30 | disposition home health service (06) | DRG 291 ==
LOC: ER 09:11 → 5EST 11:38 → EDBEDREQ 11:41 → EDBEDREQTM 11:41 → EDBEDREQSVC 11:41 → ENRESERV 13:19
PROVIDERS: ADMIT Internal Medicine; ATTEND Internal Medicine
DX: I13.0 Hypertensive heart and chronic kidney disease with heart failure and stage 1 through stage 4 chronic kidney disease, or unspecified chronic kidney disease (principal); I50.33 Acute on chronic diastolic (congestive) heart failure; J96.90 Respiratory failure, unspecified, unspecified whether with hypoxia or hypercapnia; J44.1 Chronic obstructive pulmonary disease with (acute) exacerbation; J44.0 Chronic obstructive pulmonary disease with (acute) lower respiratory infection; N17.9 Acute kidney failure, unspecified; E01.0 Iodine-deficiency related diffuse (endemic) goiter; N18.9 Chronic kidney disease, unspecified; E11.22 Type 2 diabetes mellitus with diabetic chronic kidney disease; I25.10 Atherosclerotic heart disease of native coronary artery without angina pectoris; I95.9 Hypotension, unspecified; Z82.49 Family history of ischemic heart disease and other diseases of the circulatory system; Z87.891 Personal history of nicotine dependence; Z79.899 Other long term (current) drug therapy; Z95.810 Presence of automatic (implantable) cardiac defibrillator
CPT/HCPCS: 36415; 71045; 71250; 80048; 80061; 82550; 82962; 83605; 83735; 83880; 84439; 84443; 84484; 85027; 93005; 94640; 96365; 96375; 97162; 99291; J1650; J1815; J2543; J2920; J2930; J7030; J7611; J7620

== ENCOUNTER 2019-01-22 01:36 | Inpatient (IN) | payer MEDICARE, OTHER ==
[~2019-01-22] VITALS: Ht 180.3 cm; Wt 102.1 kg
[~2019-01-22 01:36] MED LIST changes: -LOSA100T14 PO; +LOSA100T32 PO
[2019-01-22] MEDS ORDERED: SODIUM CHLORIDE 0.9% 1,000 ML IV ONE (02:04)
[2019-01-22 02:35] LABS: BG CARBOXYHEMOGLOBIN 0.7 % (0.5-1.5); BG DEOXYHEMOGLOBIN 3.5 % (0.0-5.0); BG FRACTION INSPIRED OXYGEN 32; BG METHEMOGLOBIN 0.2 % (0.0-1.5); BG OXYGEN SATURATION 96.5 % (92.0-98.5); BG OXYHEMOGLOBIN 95.6 % (94.0-97.0); BG PCO2 53.5 mmHg (35.0-45.0); BG PH 7.336 (7.350-7.450); BG PO2 95.2 mmHg (75.0-100.0); BG SAMPLE SITE RIGHT BRACHIAL; BG VENT MODE NASAL CANNULA
[2019-01-22 02:35] LABS: BASOPHILS % 0.5 % (0.0-2.0); CHLORIDE 106 mEq/L (98-107); EOSINOPHILS % 5.8 % (0.0-5.0); HEMOGLOBIN. 15.2 g/dL (14.0-18.0); LYMPHOCYTES % 31.5 % (20.0-50.0); MEAN CORPUSCULAR HEMOGLOBIN 28.3 pg (28.0-32.0); MEAN CORPUSCULAR VOLUME 87.3 fL (80.0-94.0); MEAN PLATELET VOLUME 8.3 fl (7.4-10.4); MONOCYTES % 11.7 % (2.0-8.0); NEUTROPHILS % 50.5 % (40.0-76.0); PLATELET 139 x1000/uL (130-400); RED BLOOD CELL COUNT 5.38 mill/uL (4.7-6.1); RED CELL DISTRIBUTION WIDTH 16.4 % (11.6-14.6)
[2019-01-22 02:39] LABS: ETHANOL BLOOD < 10 mg/dL
[2019-01-22 02:44] LABS: CREATINE KINASE 152 IU/L (39-308)
[2019-01-22 03:59] LABS: CLARITY URINE CLEAR (CLEAR); COLOR URINE AMBER (YELLOW); KETONES URINE TRACE (NEGATIVE); LEUKOCYTE ESTERASE URINE NEGATIVE (NEGATIVE); NITRITE URINE NEGATIVE (NEGATIVE); OCCULT BLOOD URINE NEGATIVE (NEGATIVE); PROTEIN URINE 1+ (NEGATIVE); SPECIFIC GRAVITY URINE 1.028 (1.005-1.030)
[2019-01-22 04:07] LABS: *AMPHETAMINES SCREEN URINE NEGATIVE (NEGATIVE); *BARBITURATES SCREEN URINE NEGATIVE (NEGATIVE); *BENZODIAZEPINES SCREEN URINE NEGATIVE (NEGATIVE); *COCAINE SCREEN URINE NEGATIVE (NEGATIVE); METHADONE URINE SCREEN NEGATIVE (NEGATIVE)
[2019-01-22 04:08] LABS: CANNABINOID URINE SCREEN NEGATIVE (NEGATIVE); OPIATES URINE SCREEN NEGATIVE (NEGATIVE); PHENCYCLIDINE URINE SCREEN NEGATIVE (NEGATIVE)
[2019-01-22] MEDS ORDERED: CLONIDINE 0.2MG TABLET PO PRN (06:30)
[2019-01-22 08:00] VITALS: BP 138/76
[2019-01-22 08:47] VITALS: BP 138/76
[2019-01-22] MEDS ORDERED: PREG100C MT (11:17)
[2019-01-22] MEDS ORDERED: METO100T16 MT (11:17)
[2019-01-22] MEDS ORDERED: FLUT1BLS9 IH (11:17)
[2019-01-22] MEDS ORDERED: FURO40TA5 MT (11:17)
[2019-01-22] MEDS ORDERED: P20 MT (11:17)
[2019-01-22] MEDS ORDERED: METF-414 MT (11:17)
[2019-01-22] MEDS ORDERED: HYDR-4001 PO (11:17)
[2019-01-22] MEDS ORDERED: GLIP5TAB12 MT (11:17)
[2019-01-22] MEDS ORDERED: BENA20TA10 PO (11:17)
[2019-01-22] MEDS ORDERED: DEXTROSE 50% WATER 50ML SYRINGE IV PRN (11:30)
[2019-01-22] MEDS ORDERED: IPRATROPIUM/ALBUTEROL 0.5-3(2.5)MG/3ML NEB NEB PRN (11:30)
[2019-01-22] MEDS ORDERED: ACETAMINOPHEN 325MG TABLET PO PRN (11:30)
[2019-01-22] MEDS ORDERED: NA PHOS,M-B/NA PHOS,DI-BA ENEMA 118ML PR PRN (11:30)
[2019-01-22] MEDS ORDERED: DIPHENHYDRAMINE 50MG/ML VIAL IV PRN (11:30)
[2019-01-22] MEDS ORDERED: HYDROCODONE/ACETAMINOPHEN 5/325MG TABLET PO PRN (11:30)
[2019-01-22] MEDS ORDERED: DEXT 5%/0.45% NACL 1000ML 1,000 ML IV SCH (11:30)
[2019-01-22] MEDS ORDERED: CLONIDINE 0.1MG TABLET PO PRN (11:30)
[2019-01-22] MEDS ORDERED: LORAZEPAM 0.5MG TABLET PO PRN (11:30)
[2019-01-22] MEDS ORDERED: MAGNESIUM/ALUMINUM HYDROXIDE/SIMETHICONE 30ML UDC PO PRN (11:30)
[2019-01-22] MEDS ORDERED: ONDANSETRON HCL 4MG/2ML INJ IV PRN (11:30)
[2019-01-22] MEDS ORDERED: ACETAMINOPHEN 650MG SUPP PR PRN (11:30)
[2019-01-22] MEDS ORDERED: GUAIFENESIN 200MG/10ML SUGAR FREE UDC PO PRN (11:30)
[2019-01-22] MEDS ORDERED: DOCUSATE SODIUM 100MG CAPSULE PO PRN (11:30)
[2019-01-22] MEDS ORDERED: PNEUMOCOCCAL 23-VAL P-SAC VAC 0.5 ML IM ONE (11:30)
[2019-01-22 12:00] VITALS: BP 151/98
[2019-01-22 12:26] LABS: BG BASE EXCESS 1.5 mmol/L (-2.0-2.0); BG CARBOXYHEMOGLOBIN 0.9 % (0.5-1.5); BG DEOXYHEMOGLOBIN 9.3 % (0.0-5.0); BG FRACTION INSPIRED OXYGEN 21; BG HCO3 ACT 28.5 mmol/L (22.0-26.0); BG METHEMOGLOBIN 0.1 % (0.0-1.5); BG OXYGEN SATURATION 90.6 % (92.0-98.5); BG OXYHEMOGLOBIN 89.7 % (94.0-97.0); BG PCO2 54.7 mmHg (35.0-45.0); BG PH 7.335 (7.350-7.450); BG PO2 58.9 mmHg (75.0-100.0); BG SAMPLE SITE RIGHT BRACHIAL; BG TOTAL HEMOGLOBIN 14.2 g/dL (12.0-18.0); BG VENT MODE ROOM AIR
[2019-01-22] MEDS: BLOOD SUGAR DIAGNOSTIC STRIP TEST SCH ×3 (12:37→20:26)
[2019-01-22] MEDS: INSULIN LISPRO 100 UNITS/ML SUBCUT SCH ×3 (12:53→20:26)
[2019-01-22] MEDS: PIPERACILLIN/TAZOBACTAM 3.375 G in DEXT 5% WATER 100 ML IV SCH ×2 (13:00→18:02)
[2019-01-22] MEDS: LOSARTAN POTASSIUM 100 MG TABLET PO SCH (15:45)
[2019-01-22 16:00] VITALS: BP 161/88
[2019-01-22] MEDS: METOPROLOL TARTRATE 100MG TABLET PO SCH (18:02)
[2019-01-22] MEDS ORDERED: ENOXAPARIN 40MG/0.4ML SYR SUBCUT SCH (20:00)
[2019-01-22] MEDS: AMLODIPINE 5MG TABLET PO SCH (20:20)
[2019-01-22] MEDS: BUDESONIDE 0.5MG/2ML NEB HHN SCH (20:40)
[2019-01-22] MEDS: IPRATROPIUM/ALBUTEROL 0.5-3(2.5)MG/3ML NEB HHN SCH (20:40)
[2019-01-22 23:22] LABS: CREATINE KINASE MB FRACTION 2.9 ng/mL (0.5-3.6)
[2019-01-23] VITALS (10 sets, daily range): BP systolic 129–170; BP diastolic 35–101
[2019-01-23] MEDS: PIPERACILLIN/TAZOBACTAM 3.375 G in DEXT 5% WATER 100 ML IV SCH ×5 (00:23→17:50)
[2019-01-23] MEDS: IPRATROPIUM/ALBUTEROL 0.5-3(2.5)MG/3ML NEB HHN SCH ×3 (01:39→14:20)
[2019-01-23 07:36] LABS: CHLORIDE 107 mEq/L (98-107)
[2019-01-23 07:40] LABS: BASOPHILS % 0.4 % (0.0-2.0); EOSINOPHILS % 6.1 % (0.0-5.0); HEMATOCRIT. 40.9 % (42.0-52.0); HEMOGLOBIN. 13.5 g/dL (14.0-18.0); LYMPHOCYTES % 35.1 % (20.0-50.0); MEAN CORPUSCULAR HEMOGLOBIN 28.5 pg (28.0-32.0); MEAN CORPUSCULAR VOLUME 86.6 fL (80.0-94.0); MEAN PLATELET VOLUME 8.5 fl (7.4-10.4); MONOCYTES % 11.9 % (2.0-8.0); NEUTROPHILS % 46.5 % (40.0-76.0); PLATELET 120 x1000/uL (130-400); RED BLOOD CELL COUNT 4.72 mill/uL (4.7-6.1); RED CELL DISTRIBUTION WIDTH 16.4 % (11.6-14.6)
[2019-01-23 07:52] LABS: LDL CHOLESTEROL 74 mg/dL (5-100)
[2019-01-23 07:53] LABS: HDL CHOLESTEROL 56 mg/dL (40-59); T4 FREE 1.14 ng/dL (0.76-1.46)
[2019-01-23] MEDS: BLOOD SUGAR DIAGNOSTIC STRIP TEST SCH ×3 (07:55→17:13)
[2019-01-23] MEDS: METOPROLOL TARTRATE 100MG TABLET PO SCH ×2 (08:46→17:28)
[2019-01-23] MEDS: AMLODIPINE 5MG TABLET PO SCH (08:46)
[2019-01-23] MEDS: LOSARTAN POTASSIUM 100 MG TABLET PO SCH (08:46)
[2019-01-23] MEDS: INSULIN LISPRO 100 UNITS/ML SUBCUT SCH ×3 (08:50→17:18)
[2019-01-23] MEDS ORDERED: GLIPIZIDE 5MG TABLET PO SCH (09:00)
[2019-01-23] MEDS ORDERED: FUROSEMIDE 40MG TABLET PO SCH (09:00)
[2019-01-23] MEDS: BUDESONIDE 0.5MG/2ML NEB HHN SCH (09:06)
== END 2019-01-23 19:42 | disposition home or self-care (01) | DRG 177 ==
LOC: ER 01:36 → 5EST 04:56 → EDBEDREQTM 04:59 → EDBEDREQSVC 04:59 → EDBEDREQ 04:59 → ENRESERV 07:04
PROVIDERS: ADMIT Internal Medicine; ATTEND Internal Medicine
DX: J69.0 Pneumonitis due to inhalation of food and vomit (principal); I50.33 Acute on chronic diastolic (congestive) heart failure; I13.0 Hypertensive heart and chronic kidney disease with heart failure and stage 1 through stage 4 chronic kidney disease, or unspecified chronic kidney disease; J44.1 Chronic obstructive pulmonary disease with (acute) exacerbation; E87.2 Acidosis; G93.40 Encephalopathy, unspecified; I16.1 Hypertensive emergency; E11.22 Type 2 diabetes mellitus with diabetic chronic kidney disease; E11.65 Type 2 diabetes mellitus with hyperglycemia; I25.10 Atherosclerotic heart disease of native coronary artery without angina pectoris; N18.9 Chronic kidney disease, unspecified; Z86.73 Personal history of transient ischemic attack (TIA), and cerebral infarction without residual deficits; Z79.899 Other long term (current) drug therapy; Z95.810 Presence of automatic (implantable) cardiac defibrillator
CPT/HCPCS: 36415; 36600; 71045; 80061; 80305; 80320; 81003; 82140; 82375; 82550; 82553; 82805; 82962; 83036; 83605; 84439; 84443; 84484; 93005; 93306; 93880; 93970; 94640; 97161; 99291; J1200; J1650; J1815; J2543; J7030; J7060; J7620; J7626; A4315; G0480

== ENCOUNTER 2021-12-09 12:40 | Inpatient (IN) | payer OTHER ==
[2021-12-09] VITALS: BP 156/83
[~2021-12-09] VITALS: Ht 182.9 cm; Wt 97.1 kg
[~2021-12-09 12:40] MED LIST changes: +BENA-8 PO; +FLUT1BLS9 IH; +FURO40TA5 MT; +GLIP5TAB12 MT; +HYDR-4001 PO; +METF-414 MT; -OXYB5TAB11 PO; +OXYB5TAB17 PO; +PREG100C MT
[2021-12-09] MEDS ORDERED: METHYLPREDNISOLONE SOD SUCC 125 MG/2 ML VIAL IV STA (13:04)
[2021-12-09] MEDS ORDERED: IPRATROPIUM BROMIDE (0.02%) 0.5MG/2.5ML NEB HHN STA (13:04)
[2021-12-09] MEDS ORDERED: ALBUTEROL (0.083%) 2.5MG/3ML NEB HHN STA (13:04)
[2021-12-09] MEDS ORDERED: ASPIRIN 81MG TABLET PO ONE (13:15)
[2021-12-09 14:01] LABS: BASOPHILS % 0.8 % (0.0-2.0); EOSINOPHILS % 5.9 % (0.0-5.0); HEMATOCRIT. 42.3 % (42.0-52.0); HEMOGLOBIN. 13.4 g/dL (14.0-18.0); LYMPHOCYTES % 30.2 % (20.0-50.0); MEAN CORPUSCULAR HEMOGLOBIN 27.6 pg (28.0-32.0); MONOCYTES % 10.1 % (2.0-8.0); PLATELET 112 x1000/uL (130-400); RED BLOOD CELL COUNT 4.86 mill/uL (4.7-6.1); RED CELL DISTRIBUTION WIDTH 15.9 % (11.6-14.6)
[2021-12-09 14:15] LABS: CHLORIDE 104 mEq/L (98-107)
[2021-12-09 21:00] VITALS: BP 155/88
[2021-12-09] MEDS ORDERED: DEXTROSE 50% WATER 50ML SYRINGE IV PRN (23:30)
[2021-12-10 04:00] VITALS: BP 149/67
[2021-12-10] MEDS: BLOOD SUGAR DIAGNOSTIC STRIP TEST SCH ×4 (06:12→20:53)
[2021-12-10 08:00] VITALS: BP 164/73
[2021-12-10] MEDS: ENOXAPARIN 40MG/0.4ML SYR SUBCUT SCH (08:58)
[2021-12-10] MEDS: FUROSEMIDE 40MG/4ML VIAL IVP SCH (08:59)
[2021-12-10] MEDS: PANTOPRAZOLE SODIUM 40 MG/VIAL IV SCH (08:59)
[2021-12-10] MEDS: INSULIN LISPRO 100 UNITS/ML SUBCUT SCH ×4 (09:00→21:00)
[2021-12-10] MEDS: IPRATROPIUM/ALBUTEROL 0.5-3(2.5)MG/3ML NEB HHN SCH ×3 (09:22→21:33)
[2021-12-10 12:00] VITALS: BP 118/67
[2021-12-10] MEDS ORDERED: LEVOFLOXACIN 500MG PREMIX 100 ML IV SCH (14:00)
[2021-12-10 16:00] VITALS: BP 123/89
[2021-12-10] MEDS: METHYLPREDNISOLONE SOD SUCC 40 MG/ML VIAL IV SCH ×2 (17:53→18:57)
[2021-12-10 18:00] VITALS: BP 112/89
[2021-12-10 20:00] VITALS: BP 128/79
[2021-12-11] VITALS: BP 126/82
[2021-12-11] MEDS: IPRATROPIUM/ALBUTEROL 0.5-3(2.5)MG/3ML NEB HHN SCH ×3 (01:23→09:15)
[2021-12-11] MEDS: BLOOD SUGAR DIAGNOSTIC STRIP TEST SCH ×2 (06:24→12:20)
[2021-12-11] MEDS: INSULIN LISPRO 100 UNITS/ML SUBCUT SCH ×2 (07:26→12:50)
[2021-12-11 08:00] VITALS: BP 142/52
[2021-12-11] MEDS: ENOXAPARIN 40MG/0.4ML SYR SUBCUT SCH (09:46)
[2021-12-11] MEDS: PANTOPRAZOLE SODIUM 40 MG/VIAL IV SCH (09:46)
[2021-12-11] MEDS: FUROSEMIDE 40MG/4ML VIAL IVP SCH (09:47)
[2021-12-11] MEDS ORDERED: IPRA3AMP9 NEB (11:39)
[2021-12-11] MEDS ORDERED: P20 MT (11:39)
[2021-12-11 12:00] VITALS: BP 119/72
[2021-12-11] MEDS: METHYLPREDNISOLONE SOD SUCC 40 MG/ML VIAL IV SCH (13:21)
[2021-12-11 15:17] VITALS: BP 119/72
== END 2021-12-11 16:30 | disposition home or self-care (01) | DRG 192 ==
LOC: ER 12:40 → 6WST 17:03 → EDBEDREQTM 17:05 → EDBEDREQ 17:05 → ENRESERV 19:46
PROVIDERS: ADMIT Internal Medicine; ATTEND Internal Medicine
DX: J44.1 Chronic obstructive pulmonary disease with (acute) exacerbation (principal); I11.0 Hypertensive heart disease with heart failure; I50.9 Heart failure, unspecified; E11.9 Type 2 diabetes mellitus without complications; Z20.822 Contact with and (suspected) exposure to COVID-19; I25.10 Atherosclerotic heart disease of native coronary artery without angina pectoris; T38.0X5A Adverse effect of glucocorticoids and synthetic analogues, initial encounter; Z95.0 Presence of cardiac pacemaker; Z79.899 Other long term (current) drug therapy; Z87.891 Personal history of nicotine dependence; Z79.84 Long term (current) use of oral hypoglycemic drugs; Z99.81 Dependence on supplemental oxygen; Y92.89 Other specified places as the place of occurrence of the external cause
CPT/HCPCS: 36415; 71045; 80053; 82962; 83036; 83880; 84484; 85025; 87426; 93005; 94640; 94644; 99285; C9113; C9803; J1650; J1815; J1940; J1956; J2920; J2930